=== PATIENT | female | born 1980 ===

== ENCOUNTER → 2021-02-27 15:50 | Outpatient (BNVA) | payer BC, SELFPAY | PROVIDERS: PCP Plastic Surgery; Visit Provider Urology ==

== ENCOUNTER → 2021-09-25 15:47 | Outpatient (BNVA) | payer BC, OTHER, SELFPAY | PROVIDERS: PCP Plastic Surgery; Visit Provider Urology ==

== ENCOUNTER 2023-10-04 15:32 | Outpatient (AMB) | payer OTHER, SELFPAY ==
--- NOTE | 2023-10-04 15:33 | A.OFFVIS_ITS ---
Intake Intake Visit Reasons: 1yr follow up Intake Note: Patient is present for tele visit Interstitial cystitis follow up Urology Medication: none Blood Thinner: none Evaluation Advisor Required: No Allergies Sulfa (Sulfonamide Antibiotics) Allergy (Verified 10/04/23 16:06) Unknown Medication List - Last Reconciled 10/04/23 by ANTHONY Underwood-SOPHIA escitalopram oxalate 10 mg PO DAILY lorazepam 0.5 mg PO BID PRN norethindrone ac-eth estradiol 1.5-30 mg-mcg (Junel) 1 tab PO DAILY oxybutynin chloride ER 5 mg PO DAILY HPI HPI Comments History of Present Illness Details Brenda is a pleasant 43 year old female. She is being follow-up on today via video telehealth for her interstitial cystitis. In discussion with the patient today she reports to be doing and feeling well. She reports to have had no interstitial cystitis flare-up since her last office visit here approximately 1 year ago. She denies any bothersome urinary issues or concerns at this time. She discusses avoiding triggers. 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 Interstitial cystitis Discussed triggers such as coffee, chocolate, soda She is staying away from current triggers Discussed use of Tums and potential use of H2 hardeep Will call if has flare in symptoms Review of Systems Const All systems reviewed & are unremarkable except as noted in HPI and below Physical Exam Const General: cooperative, healthy appearing, comfortable, no acute distress, well developed, alert and awake Orientation/consciousness: patient oriented x3 Resp Effort & Inspection: normal respiratory effort and able to speak in complete sentences Neuro General: patient oriented x3 Psych Appearance: grossly normal and well kempt Mental Status: mental status grossly normal Speech and movement: Clear speech present Affect: normal affect Attitude: cooperative Thought process: Normal thought process present Thought content: Normal thought content present Insight: Good insight present (Psych) Judgement: Good judgement present (Psych) Assessment & Plan Assessment & Plan (1) Interstitial cystitis: Code(s): N30.10 - Interstitial cystitis (chronic) without hematuria Plan Patient denies any bothersome urinary issues or concerns at this time. She denies having had any flare ups over the last year. Discussed bladder triggers/irritants. Continue drinking plenty of water daily. Follow-up in 1 year with [facility]; or sooner with any issues, concerns, and or questions. Patient Instructions: The patient had an opportunity to ask questions regarding the treatment plan. All questions were answered. Physical exam, labs, and imaging were discussed and reviewed in detail. As well as risks, benefits, and discussion of treatment choices. No major barriers to understanding were identified. The patient expressed understanding and agreement with the above treatment plan. The patient was made aware they should contact our office by phone for worsening of their current condition, the appearance of new symptoms, or with any questions or concerns. Compliance is encouraged with any medications and follow up testing that is ordered. It is a privilege to be allowed the opportunity to participate in? your urological care.? Again, if you have any questions or concerns If you have any questions or concerns please do not hesitate to contact me. The office is [phone]. This note is constructed using voice recognition software. While every effort has been made to ensure accuracy intake assessor errors may have been included. Yours sincerely, SWATHI Underwood Telehealth Telehealth Location of provider rendering services: practice address Location of patient: address on file Patient Identification confirmed using: Name, : Yes Telehealth method: video Patient verbally consented to treatment: Yes Patient verbally consented to billing insurance company: Yes Patient informed of any privacy concerns related to visit: Yes Minutes spent on Phone/Video with Pt.: 15 Coding Level of Care Code Tele Est Pt Level 3 (88125) Diagnoses Interstitial cystitis N30.10
== END 2023-10-04 16:15 | disposition home or self-care (01) ==
LOC: HO.HUSH 15:32
PROVIDERS: PCP Internal Medicine; Visit Provider Nurse Practitioner Family
DX: N30.10 Interstitial cystitis (chronic) without hematuria (principal)
CPT/HCPCS: 99213

== ENCOUNTER → 2023-10-04 15:32 | Outpatient (BNVA) | payer OTHER, SELFPAY | PROVIDERS: PCP Internal Medicine; Visit Provider Nurse Practitioner Family ==